=== PATIENT | female | born 1940 | race Caucasian/White ===

== ENCOUNTER 2024-10-31 18:20 | Emergency (ER) | payer OTHER, SELFPAY ==
--- OUTSIDE RECORDS SUMMARY | 2024-10-31 18:22 | XMS_ITS | Clinical Summary ---
Author Organization [facility] Address [address] [place] [address] Care Team Providers Care Color Weigher Name Role Phone Estrella Xiao MD Primary Care Provider [phone] Allergies No known active allergies Medications Medication Sig Dispensed Refills Start Date End Date Status Ascorbic Acid (VITAMIN C) 500 MG tablet Take 500 mg by mouth daily. Active acetaminophen (TYLENOL) 500 MG tablet Take 500 mg by mouth every 6 hours as needed. Active lisinopril (PRINIVIL;ZESTRIL) 10 MG tablet Take 1 tablet by mouth daily. 90 tablet 3 06/27/2014 Active simvastatin (ZOCOR) 40 MG tablet Take 1 tablet by mouth daily. 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 Immunizations Name Administration Dates Next Due Pneumococcal, PPSV23, PNEUMO VAX 23, (age 2y+), SC/IM, 0.5mL 12/02/2009 Family History Medical History Relation Name Comments Hypertension Father Colon Cancer Mother Relation Name Status Comments Father Mother Social History Tobacco Use Types Packs/Day Years Used Date Smoking Tobacco: Former Tobacco Cessation:Counseling Given: Yes Alcohol Use Standard Drinks/Week Comments Yes 0 (1 standard drink = 0.6 oz pure alcohol) moderate alcohol use, 1 drink a day Sex and Gender Information Value Date Recorded Sex Assigned at Not on file Gender Identity Not on file Sexual Orientation Not on file Last Filed Vital Signs Vital Sign Reading Time Taken Comments Blood Pressure 136/82 06/27/2014 2:29 PM EDT Pulse 77 06/27/2014 2:29 PM EDT Temperature 36.3 C (97.4 F) 04/13/2013 9:46 AM EDT Respiratory Rate - - Oxygen Saturation 97% 06/27/2014 2:29 PM EDT Inhaled Oxygen Concentration - - Weight 64 kg (141 lb 3.2 oz) 06/27/2014 2:29 PM EDT Height 161.3 cm (5' 3.5) 04/13/2013 9:46 AM EDT Body Mass Index 24.62 04/13/2013 9:46 AM EDT Plan of Treatment Not on file Care Teams Color Weigher Relationship Specialty Start Date End Date Estrella Xiao MD [address] [place] [address] PCP - General 06/09/10
[2024-10-31 18:43] VITALS: BP 216/107; PULSE 73; RESP 18; TEMP 36.3; O2SAT 98; BMI 21.3
[2024-10-31 19:27] VITALS: O2SAT 100
--- NOTE | 2024-10-31 19:29 | ED.GENADULT ---
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 She reports onset at 10:00 a.m. this morning of some left-sided abdominal pain left upper abdominal pain and then now it has been more just diffuse periumbilical abdominal pain. The patient's pain was in the left upper quadrant has resolved. She has been able eat and drink but has not much appetite today no fevers, no rigors chills. Patient denies dysuria frequency diarrhea. The patient has had no rigors, no personal history of coronary disease by her report. Related Data Allergies Allergy/AdvReac Type Severity Reaction Status Date / Time levofloxacin (From Levaquin) Allergy Intermediate Abdominal Verified 10/31/24 18:51 Pain Review of Systems Status of ROS: Reports: 6 or more systems reviewed and unremarkable except as noted in History and below Exam Narrative: Exam Narrative: Objective: Patient's blood pressure is elevated 216/107 she is mildly anxious she is afebrile O2 sats 90% on room air HEENT is unremarkable no facial asymmetry mouth clear neck is supple chest is clear Heart rhythm without murmur No palpable chest wall pain, there is on abdominal exam some mild diffuse periumbilical tenderness but no rebound no peritonitis no prominent aortic pulsations no palpable masses. Extremities are no edema Neurologic nonfocal Good peripheral perfusion noted. Const: Vital Signs, click to edit/add: Vital Signs - 24 hr 10/31/24 18:43 10/31/24 19:27 10/31/24 20:22 Temperature 97.4 F L 98.7 F Pulse Rate [Pulse Oximeter] 73 82 Respiratory Rate 18 18 Blood Pressure [Ri ght Upper Arm] 216/107 H 190/122 H Pulse Oximetry 98 100 100 Oxygen Delivery Me thod Room Air Room Air Course Vital Signs Vital signs: Initial Vital Signs Temperature 97.4 F L 10/31/24 18:43 Temperature Source Temporal Artery Scan 10/31/24 18:43 Pulse Rate 73 10/31/24 18:43 Respiratory Rate 18 10/31/24 18:43 Blood Pressure 216/107 H 10/31/24 18:43 Blood Pressure Mean 143 H 10/31/24 18:43 Pulse Oximetry 98 10/31/24 18:43 Oxygen Delivery Method Room Air 10/31/24 18:43 Vital Signs Temperature 97.4 F L 10/31/24 18:43 Pulse Rate 73 10/31/24 18:43 Respiratory Rate 18 10/31/24 18:43 Blood Pressure 216/107 H 10/31/24 18:43 Pulse Oximetry 98 10/31/24 18:43 Oxygen Delivery Method Room Air 10/31/24 18:43 Temperature 98.7 F 10/31/24 20:22 Pulse Rate 82 10/31/24 20:22 Respiratory Rate 18 10/31/24 20:22 Blood Pressure 190/122 H 10/31/24 20:22 Pulse Oximetry 100 10/31/24 20:22 Oxygen Delivery Method Room Air 10/31/24 20:22 Medications Administered Medications: Discontinued Medications Generic Name Dose Route Start Last Admin Trade Name Freq PRN Reason Stop Dose Admin Sodium Chloride 500 mls @ 500 mls/hr 10/31/24 19:27 10/31/24 21:01 0.9 % Sodium Chloride 500 Ml IV 10/31/24 20:26 Infused .Q1H ONE Infusion Metoprolol Tartrate 25 mg 10/31/24 20:40 10/31/24 20:48 Metoprolol Tartrate 25 Mg Tablet PO 10/31/24 20:41 25 mg ONCE ONE Administration Morphine Sulfate 2 mg 10/31/24 19:27 10/31/24 20:03 Morphine 4 Mg/Ml Inj IVP 10/31/24 19:28 2 mg ONCE ONE Administration Medical Decision Making [facility] Narrative Medical decision making narrative: [age] white female with history of metastatic lung cancer to left adrenal by her history. Patient reports left-sided abdominal pain today. I think a CT scan be appropriate her abdomen think will do this because of her age without contrast to start. Will get lab studies IV fluid, IV morphine. Will see the can help her blood pressure and pain. Differential be broad including intra-abdominal pathology, abdominal wall strain. She does not seem to have chest pain but I think will get an EKG and a troponin for completeness. Disposition pending findings above. Addendum 8:15 p.m. patient is CRP is slightly elevated 3.8 CBC shows a normal white count normal hemoglobin, sodium is low 126 potassium normal BUN creatinine normal troponin is negative at 0.01. Patient's EKG shows sinus rhythm with PACs no acute ST T wave changes by my read. Patient has a cystic lesion in the pancreas noted on CT. Also has lot of stool present. I suspect she has more symptoms from constipation. Recommend MiraLax for home and follow up with regular doctor for further imaging of her pancreas. Will recheck her blood pressure. 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 I think if we help her with constipation now be very helpful will give her a dose of metoprolol as well as her diastolic pressure is up and down a little bit give her 25 she has a history of hypertension but does not take ending for now. I would recommend she recheck her blood pressure daily over the next couple of days, use the MiraLax 2 capsules a day and till she gets results and Dr. Fang doctor the next 48 hours for reassessment certainly sooner return to ED problems or concerns or issues. Lab Data Labs: Lab Results 10/31/24 10/31/24 Range/Units 19:28 19:38 WBC 6.31 (4.50-11.00) K/uL RBC 4.42 (4.00-5.20) m/uL Hgb 13.5 (12.0-16.0) gm/dL Hct 40.7 (33.0-51.0) % MCV 92 (80-100) fL MCH 31 (26-34) pg MCHC 33 (32-36) gm/dL RDW Coeff of Carmen 15.7 H (11.5-15.5) % Plt Count 213 (140-440) K/uL Neut % (Auto) 77.9 H (42.0-72.0) % Lymph % (Auto) 10.5 L (20-44) % Lucas % (Auto) 7.0 (0.0-11.0) % Eos % (Auto) 3.8 (0.0-7.0) % Baso % (Auto) 0.6 (0.0-3.0) % Neut # (Auto) 4.90 (1.7-7.0) K/uL Lymph # (Auto) 0.70 L (0.90-2.90) K/uL Lucas # (Auto) 0.40 (0.00-0.90) K/UL Eos # (Auto) 0.24 (0.00-0.50) K/uL Baso # (Auto) 0.04 (0.00-0.30) K/uL Abs Immat Gran (auto) 0.01 (0.00-0.30) K/uL Imm/Tot Granulo (auto) 0.2 % Sodium 126 L (135-149) mmol/L Potassium 4.4 (3.6-5.1) mmol/L Chloride 97 (96-114) mmol/L Carbon Dioxide 23 (20-32) mmol/L Anion Gap 6 L (7-15) mEq/L BUN 13 (7-30) mg/dL Creatinine 0.8 (0.5-1.5) mg/dL Estimated Creat Clear 34.64 Estimated GFR 73 ml/min Glucose 96 (60-115) mg/dL Calcium 8.9 (8.4-10.6) mg/dL Total Bilirubin 0.9 (0.1-1.5) mg/dL Direct Bilirubin 0.2 (0.0-0.5) mg/dL AST 17 (12-35) U/L ALT 10 (4-35) U/L Alkaline Phosphatase 47 (40-150) U/L C-Reactive Protein 3.8 H (0.5-1.0) mg/dL Total Protein 5.6 L (6.0-8.3) g/dL Albumin 3.2 L (3.3-5.0) g/dL Amylase 76 (18-89) U/L SARS-CoV-2 (PCR) Negative SARS-CoV-2 (Negative) Influenza Type A (PCR) Negative PCR FLU A (Negative) Influenza Type B (PCR) Negative PCR FLU B (Negative) RSV (PCR) Negative PCR RSV (Negative) POC Troponin I 0.01 (0.01-0.04) ng/ml Discharge Plan Discharge Clinical Impression: Abdominal pain, Constipation Patient Disposition: Home w/ Parent or Adult Condition: Stable Additional Instructions: Light activity, fluids, MiraLax 1 capful in water twice a day for the next several days. Recommend follow-up with your regular doctor to discuss your findings on CT which include a cystic process in your pancreas. Return if problems or concerns. Activity Level: Light activity Discharge Diet: High Fiber Stand Alone Forms: [employer] Info Instructions
--- OUTSIDE RECORDS SUMMARY | 2024-10-31 19:46 | XMS_ITS | Clinical Summary ---
Author Organization [facility] Address [address] [place] [address]. [place] [address] Care Team Providers Care Foil Spinner Name Role Phone Melanie Louise Dami WOOD TANK BUILDER Primary Care Provider [phone] Allergies Active Allergy Reactions Criticality Noted Date Comments Levofloxacin Swelling 09/28/2022 Swelling ankles Simvastatin Muscle Pain (Myalgia) 10/01/2021 Medications losartan (COZAAR) 50 MG tablet Take 50 mg by mouth daily Active amLODIPine (NORVASC) 2.5 MG tablet Take 2.5 mg by mouth daily Active multivitamin w/minerals (THERA-VIT-M) tablet Take 1 tablet by mouth daily Active triamcinolone (KENALOG) 0.1 % external cream 2 Active senna-docusate (SENOKOT-S/PER ICOLACE) 8.6-50 MG tabletIndicati ons:S/P total knee arthroplasty, left Take 1-2 tablets by mouth 2 times daily Take while on oral narcotics to prevent or treat constipation. 30 tablet 3 Active polyethylene glycol (MIRALAX) 17 g packetIndicati ons:S/P total knee arthroplasty, left Take 17 g by mouth daily 10 packet 3 Active acetaminophen (TYLENOL) 325 MG tabletIndicati ons:S/P total knee arthroplasty, left Take 2 tablets (650 mg) by mouth every 4 hours as needed for other (mild pain) May use regular strength (325mg) acetaminophen over the counter medication when Rx runs out. 100 tablet 3 Active oxyCODONE (ROXICODONE) 5 MG tabletIndicati ons:S/P total knee arthroplasty, left Take 1-2 tablets (5-10 mg) by mouth every 4 hours as needed for moderate to severe pain or severe pain (7-10) Begin weaning on POD3 30 tablet 3 Active hydrOXYzine (ATARAX) 10 MG tabletIndicati ons:S/P total knee arthroplasty, left Take 1 tablet (10 mg) by mouth every 6 hours as needed for itching or anxiety (with pain, moderate pain) 30 tablet 3 Active aspirin (ASA) 325 MG EC tabletIndicati ons:S/P total knee arthroplasty, left Take 1 tablet (325 mg) by mouth daily 30 tablet 3 Active acetaminophen (TYLENOL) 500 MG tablet Take 1,500 mg by mouth daily Active Social History Tobacco Use Types Packs/Day Years Used Date Smoking Tobacco: Never Smokeless Tobacco: Never Tobacco Cessation:Counseling Given: Not Answered Alcohol Use Standard Drinks/Week Comments Yes 0 (1 standard drink = 0.6 oz pur e alcohol) occasional beer Adolescent Education Answer Date Record ed Getting School Help Needed Not on file 06/27 Comments No Sex and Gender Information Value Date Recorded Sex Assigned at Not on file Legal Sex Female 3:13 AM CARBIDE OPERATOR Gender Identity Not on file Sexual Orientation Not on file Last Filed Vital Signs Vital Sign Reading Time Taken Comments Blood Pressure 132/72 10/27/2022 7:54 AM CARBIDE OPERATOR Pulse 82 10/27/2022 4:31 AM CARBIDE OPERATOR Temperature 37 C (98.6 F) 10/27/2022 4:31 AM CARBIDE OPERATOR Respiratory Rate 19 10/27/2022 7:54 AM CARBIDE OPERATOR Oxygen Saturation 94% 10/27/2022 7:54 AM CARBIDE OPERATOR Inhaled Oxygen Concentration - - Weight 59 kg (130 lb) 10/26/2022 6:37 AM CARBIDE OPERATOR Height 162.6 cm (5' 4) 10/26/2022 6:37 AM CARBIDE OPERATOR Body Mass Index 22.31 10/26/2022 6:37 AM CARBIDE OPERATOR Plan of Treatment Health Maintenance Due Date Last Done Comments ADVANCE CARE PLANNING 1940 ANNUAL REVIEW OF HM ORDERS 1940 DEXA 1940 FALL RISK ASSESSMENT 02/17/2005 DTAP/TDAP/TD IMMUNIZATION (1 - Tdap) 12/08/2014 12/07/2014, 09/20/2002 RSV VACCINE (1 - 1-dose 75+ series) 02/17/2015 ZOSTER IMMUNIZATION (2 of 3) 09/16/2015 07/22/2015 MEDICARE ANNUAL WELLNESS VISIT 09/30/2022 09/30/2021, 09/24/2020 COVID-19 Vaccine (3 - 2023-2 5 season) 2024 01/15/2021, 12/25/2020 INFLUENZA VACCINE (#1) 2024 PHQ-2 (once per calendar year) 2024 Pneumococcal Vaccine: 50+ Years Completed 08/24/2018, 07/08/2015 HPV IMMUNIZATION Aged Out No longer e ligible based on patient's age to complete this topic MENINGITIS IMMUNIZATION Aged Out No l onger eligible based on patient's age to complete this topic Goals Goal Patient Goal Type Associated Problems Recent Progress Patient-Stated? Author Total Joint Replacement Hip Pathway Care Plan Total Joint Replacement Hip Pathway No Giacomo Thomas, RN Medical Devices Implanted Type Area Precipitate Washer Device Identifier Shelf Expiration Date Model / Serial / Lot Bone Cement Simplex Full Dose 6191-1-001 - [id number] Implanted:Qty: 1 on 10/26/2022 by Brendan Kay MD at [facility] Cement, Bone Left: Knee [employer] 02/17/2025 6191-1-001 / / [id number] Imp Tibial Zim Psn Forest Examiner Stm 5deg Sz El [id number] - [id number] Implanted:Qty: 1 on 10/26/2022 by Brendan Kay MD at [facility] Total Joint Component /Insert Left: Knee [employer] 05/11/2032 42-5320-07 1- / / [id number] Patella Zim Knee All Jenny 32mm [id number] - [id number] Implanted:Qty: 1 on 10/26/2022 by Brendan Kay MD at [facility] Total Joint Component /Insert Left: Knee [employer] 07/23/2027 42-5400-00 0-32 / / [id number] Cemented Femur Ps Left Size 6 Implanted:Qty: 1 on 10/26/2022 by Brendan Kay MD at [facility] Left: Knee 03/24/2032 [id number] 0 [id number] Persona, Articular Surface, Fixed Bearing, Ps, Left, 10mm Height Implanted:Qty: 1 on 10/26/2022 by Brendan Kay MD at [facility] Left: Knee [employer] 06/22/2029 [id number] 7- [id number] Additional Health Concerns Active Problems Noted Date Diagnosed Date Total Joint Replacement Hip Pathway 10/19/2022 Insurance [email or web address] Advance Directives For more information, please contact: [phone] * Full Code (Latest Code Status on File) Date Activated Date Inactivated Comments 10/26/2022 2:34 PM 10/27/2022 5:37 PM All basic and advanced life-sustaining interventions are performed as appropriate Question Answer Comments Code status determined by: Unable to dis cuss and no AD/POLST on file; continue PREVIOUSLY ORDERED code status Care Teams Foil Spinner Relationship Specialty [place] [address] [place] [address] PCP - General Family Medicine 10/26/22
--- OUTSIDE RECORDS SUMMARY | 2024-10-31 19:46 | XMS_ITS | Clinical Summary ---
Author Organization [facility] Address [address] [place] [address] Care Team Providers Care Turret Lathe Tender Name Role Phone Estrella Xiao MD Primary Care Provider [phone] Allergies No known active allergies Medications Medication [...] of Treatment Not on file Care Teams Turret Lathe Tender Relationship Specialty Start Date End Date Estrella Xiao MD [address] [place] [address] PCP - General 06/09/10
--- OUTSIDE RECORDS SUMMARY | 2024-10-31 19:46 | XMS_ITS | Clinical Summary ---
Author Organization [id number] Address [place], [place] [address] Care Team Providers Care Fiscal Analyst Name Role Phone Melanie Louise RADIOLOGY NURSE Primary Care Provider [phone] Alem Salvador RN, BSN, OCN Unavailable [phone] Sandra Rodriguez MD Unavailable [phone] Gael Sylvester MD Unavailable + [facility] Unavailable [phone] Janie Oneill RN Unavailable [phone] Allergies Active Allergy Reactions Criticality Noted Date Comments Levofloxacin Arthralgia Medium 07/29/2016 It attacked my legs. I could hardly walk. Simvastatin Myalgia Unknown 10/01/2021 Medications acetaminophen (TylenoL) 325 mg cap Take 500 mg by mouth 3 times daily if needed. Active albuterol HFA (PRO-AIR; VENTOLIN; PROVENTIL) 90 mcg/actuation inhalerIndicatio ns:Pulmonary emphysema, unspecified emphysema type (HC) Inhale 2 Puffs by mouth 4 times daily if needed for Shortness Of Breath or Wheezing. 18 g 2 4 Active diclofenac topical (VOLTAREN) 1 % gelIndications:L eft wrist pain Apply 2 g topically to affected area(s) 4 times daily if needed (wrist). 4 Active prednisoLONE acetate 1% ophthalmic (Pred Forte) suspensionIndica tions:Nuclear sclerotic cataract of both eyes Start drops in affected eye after surgery Left eye 07/06/24 and Right eye 07/20/24. One drop four times a day for three weeks. 5 mL 2 4 Active brimonidine 0.2 % ophthalmic solutionIndicati ons:Status post cataract surgery, right Place 1 Drop into right eye three times daily. 5 mL 4 Active capmatinib (TABRECTA) 200 mg tabletIndication s:Malignant neoplasm of lower lobe of right lung (HC) Take 2 Tablets (400 mg) by mouth two times daily. Swallow tablet whole, do not break, crush, or chew. 112 Tablet 2 4 11/07/19 25 Active furosemide (Lasix) 20 mg tabletIndication s:Swelling Take 1 Tablet (20 mg) by mouth once daily if needed (swelling related to oral treatment for lung cancer). 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 Swallow tablet whole, do not break, crush, or chew. Receiving from PAP; current erx has 7 refills remaining as of 10/24/24. Active Active Problems Problem Noted Date Diagnosed Date Sinus tachycardia 01/19/2024 Hyponatremia 01/16/2024 Left wrist pain 01/16/2024 COPD (chronic obstructive pulmonary disease) Malignant neoplasm of lower lobe of right lung 0 11/09/2023 Non-small cell cancer of right lung 11/02/2023 Cancer Staging:Clinical:Stage IIB(cT2a, cN1, cM0) - Signed by Sandra Rodriguez MD on 11/02/2023 Lung mass 10/25/2023 PMR (polymyalgia rheumatica) 09/28/2021 Cervical facet syndrome 12/07/2020 Overview (12/07/2020): 11/14/2020: [place] epidural steroid injection at C7-T1 level, 90% lidocaine benefit, but no lasting benefit. 12/05/2020: Right C5 TF CATHERINE at [facility]. Prediabetes 09/23/2020 Pancreatic cyst 06/25/2017 Overview (10/27/2017): Has not increased in size. No further monitoring required 10/26/17 Essential hypertension 07/08/2015 Overview (02/03/2022): Losartan. November 2020: added amlodipine 5mg. 02/08 Stopped Amlodipine due to some low blood pressures. Hyperlipidemia 07/08/2015 Chronic cough 07/08/2015 Gastroesophageal reflux disease without esophagi tis 07/08/2015 Resolved Problems Problem Noted Date Diagnosed Date Resolved Date Primary cancer of left breast 10/29/2017 09/29/2022 Overview (10/29/2017): In 2001. Lymph nodes negative. Had radiation but no chemo. Encounters Date Type Department Care Team Description 10/30/2024 11:00 AM HEATING TECHNICIAN Ancillary Procedure [facility] [address] [place] [phone] Arrived 10/30/2024 Travel 10/24/2024 11:40 AM HEATING TECHNICIAN Office Visit [facility] [address] [place], [place] [id number] Byron Souza, OD Eye Problem (Rx Ck following IOL) 10/24/2024 Telephone [facility] [place] [address] [place] [address] Gael Sylvester MD bill question 10/24/2024 Travel 10/05/2024 12:00 PM HEATING TECHNICIAN Office Visit [address] [place] [phone] Nico Zavaleta PA Follow Up 10/05/2024 11:30 AM HEATING TECHNICIAN - 10/05/2024 11:59 PM HEATING TECHNICIAN Hospital Encounter [facility] [address] [place] [address] Malignant neoplasm of lower lobe of right lung (HC) (Primary Dx) 10/05/2024 Travel 09/07/2024 Telephone [facility] [address] [place] [phone] Sandra Rodriguez MD [facility] Results 09/04/2024 2:30 PM HEATING TECHNICIAN Office Visit [facility] [address] [place] [phone] Sandra Rodriguez MD Follow Up 09/04/2024 2:00 PM HEATING TECHNICIAN - 09/04/2024 11:59 PM HEATING TECHNICIAN Hospital Encounter [facility] [address] [place] [address] Malignant neoplasm of lower lobe of right lung (HC) (Primary Dx) 09/04/2024 Telephone [facility] [address] [place] [phone] Sandra Rodriguez MD Appointment 09/04/2024 Travel 08/15/2024 Telephone [facility] [address] [place] [phone] [facility] Financial Questions/Services (Re-enrollment [employer] approval) 08/14/2024 11:00 AM HEATING TECHNICIAN Office Visit [facility] [address] [place] [phone] Sandra Rodriguez MD Follow Up 08/14/2024 10:05 AM HEATING TECHNICIAN - 08/14/2024 11:59 PM HEATING TECHNICIAN Hospital Encounter [facility] [address] [place] [address] Malignant neoplasm of lower lobe of right lung (HC) (Primary Dx) 08/14/2024 Telephone [facility] [address] [place] [phone] Sandra Rodriguez MD Appointment 08/14/2024 Travel 08/11/2024 10:20 AM HEATING TECHNICIAN Office Visit [facility] [address] [place] [address] Byron Souza, OD Post-op (3 Week POV IOL OU) 08/10/2024 9:30 AM HEATING TECHNICIAN Ancillary Procedure [facility] [address] [place] [phone] 08/10/2024 Telephone [facility] [address] [place] [address] Sandra Rodriguez MD Care Coordination (CT Scan) 08/10/2024 Travel 08/03/2024 Telephone [facility] [address] [place] [address] Sandra Rodriguez MD Results (Labs) 08/02/2024 Patient Outreach [facility] [address] [place] [address] Janie Oneill RN Focused Care Management (Unenrollment from [facility] ) 08/01/2024 8:30 AM HEATING TECHNICIAN Orders Only [facility] [address] [place] [address] Lab, [facility] 08/01/2024 Travel from Last 3 Months Immunizations Name Administration Dates Next Due COVID-19 vaccine (Startup Freak 30mcg/0.3mL) P F, MDV 01/15/2021,12/25/2020 Pneumococcal Poly,23-Valent (Pneumovax) 08/24/20 18 Pneumococcal conj 13-Valent (Prevnar 13) 015 Td (Age >=7 Years) 12/07/2014,09/20/2002 Zoster (Zostavax-ZVL, live) 07/22/2015 Family History Medical History Relation Name Comments Lymphoma Brother Cancer-breast Daughter Good Health Father Cancer-breast Maternal Grandmother Cancer-colon Mother Good Health Son Cancer-ovarian No Family History Relation Name Status Comments Brother Daughter Father Maternal Grandmother Mother Son Social History Tobacco Use Types Packs/Day Years Used Date Smoking Tobacco: Former Cigarettes 1 25 1 955 - 1979 Smokeless Tobacco: Never Tobacco Cessation:Counseling Given: Not Answered Comments:quit in 1979 Alcohol Use Standard Drinks/Week Comments Yes 7 (1 standard drink = 0.6 oz pur e alcohol) Beer and wine social/minimal PHQ-2 Answer Date Recorded PHQ-2 TOTAL SCORE 1 02/01/2024 Social Connections Answer Date Recorded Do you often feel lonely or isolated from those around you? 0 01/16/2024 Financial Resource Strain Answer Date R ecorded Difficulty of Paying Living Expenses 2 02/21/2024 Difficulty of Paying Living Expenses Not on file 02/21/2024 Food Insecurity Answer Date Recorded Do you worry your food will run out before you are able to buy more? 1 01/16/2024 Transportation Needs Answer Date Record ed Does lack of transportation keep you from medica l appointments? 1 01/16/2024 Does lack of transportation keep you from work, meetings or getting things that you need? 1 01/16/2024 Housing Stability Answer Date Recorded What is your housing situation today? 1 01/16/2024 Interpersonal Safety Answer Date Record ed Are you being hit, kicked, p ushed or yelled at (see row info)? No 05/03/2024 Interpersonal Safety Abuse 12 - 18 Not on file 05/03/2024 Interpersonal Safety Ambulatory Vulnerability No t on file 05/03/2024 Utilities Answer Date Recorded Do you have trouble paying f or utilities (for example, heat, electricity, water, phone)? 1 01/16/2024 Comments No Sex and Gender Information Value Date Recorded Sex Assigned at Not on file Legal Sex Female 8:06 AM CDT Gender Identity Not on file Sexual Orientation Not on file Obstetrics History Last Filed Vital Signs Vital Sign Reading Time Taken Comments Blood Pressure 132/80 10/05/2024 12:16 PM HEATING TECHNICIAN Pulse 99 10/05/2024 12:16 PM HEATING TECHNICIAN Temperature 36.2 C (97.2 F) 07/20/2024 9:34 AM CDT Respiratory Rate 14 10/05/2024 12:1 6 PM HEATING TECHNICIAN Oxygen Saturation 97% 10/05/2024 12: 16 PM HEATING TECHNICIAN Inhaled Oxygen Concentration - - Weight 57.1 kg (125 lb 14.4 oz) 09/04/2024 2:32 PM HEATING TECHNICIAN Height 158.5 cm (5' 2.4) 09/04/2024 2:32 PM HEATING TECHNICIAN Body Mass Index 22.73 09/04/2024 2:32 PM HEATING TECHNICIAN Plan of Treatment Upcoming Encounters Date Type Department Care Team (Late st Contact Info) Description 11/06/2024 11:30 AM HEATING TECHNICIAN Appointment [facility] [address] [place] [address] 11/06/2024 12:00 PM HEATING TECHNICIAN Office Visit [facility] [address] [place] [address] Nico Zavaleta PA [address] [place], [place] [phone] Health Maintenance Due Date Last Done Comments RSV vaccine for adults or (1 - 1-dose 75+ series) 02/17/2015 Zoster (shingles) series for age 50+ (1 of 2) 09/16/2015 07/22/2015 COVID-19 vaccine series (3 - Pfizer risk series) 02/12/2021 01/15/2021, 12/25/2020 Influenza for age 65+ 05/21/2024 Tetanus booster 12/07/2024 12/07/2014, 09/20/2002 Medicare Wellness for age 65+ 02/01/2025, 12/30/2022, 09/30/2021, Additional history exists Depression screening for age 12+ 02/03/2025 02/04/2024, 02/01/2024, 12/30/2022, Additional history exists BMI (ht and wt on same day) for age 18+ 09/04/2025 09/04/2024, 08/14/2024, 07/18/2024, Additional history exists Pneumococcal series for age 50+ Completed 8, 07/08/2015 DEXA/DXA scan for age 65+ Completed 04/20/2019 Tdap Discontinued Medical Devices Implanted Type Area Spring Intern Device Identifier Shelf Expiration Date Model / Serial / Lot Iol [place] Preload 1 Pc Clear 6mm 24.50 Diopter [employer] - [id number] Implanted:Qty : 1 on 07/06/2024 by Javy Govea MD at [facility] [place] Opthalmology Implants Left: Eye [employer] 04/20/2027 [id number] / [id number] / NA Iol [place] Preload 1 Pc Clear 6mm 25.00 Diopter [employer]nis - [id number] Implanted:Qty : 1 on 07/20/2024 by Javy Govea MD at [facility] [place] Right: Eye [employer] 07/30/2026 [id number] / [id number] / NA Procedures Procedure Name Priority Date/Time Associated Diagnosis Comments CT CHEST ABDOMEN PELVIS W Routine 10/30/2024 11:10 AM HEATING TECHNICIAN Malignant neoplasm of lower lobe of right lung (HC) COMP METABOLIC PANEL STAT 10/05/2024 12:16 PM HEATING TECHNICIAN Malignant neoplasm of lower lobe of right lung (HC) ONCOLOGY ABSOLUTE NEUTROPHIL COUNT STAT 10/05/2024 12:07 PM HEATING TECHNICIAN Malignant neoplasm of lower lobe of right lung (HC) COMP METABOLIC PANEL STAT 09/04/2024 2:20 PM HEATING TECHNICIAN Malignant neoplasm of lower lobe of right lung (HC) ONCOLOGY ABSOLUTE NEUTROPHIL COUNT STAT 09/04/2024 2:20 PM HEATING TECHNICIAN Malignant neoplasm of lower lobe of right lung (HC) COMP METABOLIC PANEL STAT 08/14/2024 10:40 AM HEATING TECHNICIAN Malignant neoplasm of lower lobe of right lung (HC) ONCOLOGY ABSOLUTE NEUTROPHIL COUNT STAT 08/14/2024 10:40 AM HEATING TECHNICIAN Malignant neoplasm of lower lobe of right lung (HC) CT CHEST ABDOMEN PELVIS W Routine 08/10/2024 9:50 AM HEATING TECHNICIAN Malignant neoplasm of lower lobe of right lung (HC) HEPATIC FUNCTION PANEL STAT 08/01/2024 8:27 AM HEATING TECHNICIAN Malignant neoplasm of lower lobe of right lung (HC) XR DXA BONE DENSITY 2 SITES AXIAL Routine 04/20/2019 1:45 PM CDT Menopause from Last 3 Months or Most Recently Relevant to Health Maintenance Results * CT CHEST ABDOMEN PELVIS W (10/30/2024 11:10 AM HEATING TECHNICIAN) Only the most recent of2 resultswithin the time period is included. Anatomical Region Laterality Modality Abdomen, Pelvis, AORTA, LIVER, SPLEEN, CHEST Computed Tomography 10/30/2024 11:1 0 AM HEATING TECHNICIAN Impressions 10/30/2024 4:28 PM HEATING TECHNICIAN 1. Post treatment consolidation and volume loss perihilar right lung is stable with no CT signs of recurrent disease. 2. No new disease. 3. Previously described new right lower lobe nodule has resolved. 4. Left adrenal metastasis and the diminutive PET positive right infraclavicular lymph node have decreased in size. 5. 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 Narrative 10/30/2024 4:28 PM HEATING TECHNICIAN For Patients: As a result of the Century Cures Act, medical imaging exams and procedure reports are released immediately into your electronic medical record. You may view this report before your referring provider. If you have questions, please contact your health care provider. EXAM: CT CHEST ABDOMEN PELVIS W LOCATION: [facility] DATE: 10/30/2024 INDICATION: Malignant Neoplasm Of Lower Lobe Of Right Lung (hc) COMPARISON: 08/10/24 ct, 05/03/24 ct, 04/10/2024 PET/CT TECHNIQUE: CT scan of the chest, abdomen, and pelvis was performed following injection of IV contrast. Multiplanar reformats were obtained. Dose reduction techniques were used. CONTRAST: Omnipaque 350 100 FINDINGS: LUNGS AND PLEURA: Large area of as treatment consolidation, volume loss and underlying traction bronchiectasis involving the upper half of the right lower lobe and the central perihilar parenchyma of the right upper and middle lobes consistent unchanged with no specific CT signs of recurrent disease. Previously described new right lower lobe solid nodule with groundglass halo has nearly completely resolved and several additional ill-defined groundglass density nodular opacities along the lateral margin of the above mentioned posttreatment change in the mid right lung (series 5 images 131, 142) and a small triangular focus of groundglass opacity posterior left upper lobe along the upper major fissure (image 59 of series 5) are unchanged and likely benign. Mild chronic radiation fibrosis subpleural anterior left upper lobe unchanged. Mild upper lung paraseptal emphysema and subpleural reticulation and mild distal bronchiolectasis in the mid and lower lungs unchanged. No pleural effusion. MEDIASTINUM/AXILLAE: No discrete lymphadenopathy. Diminutive right infraclavicular lymph node positive at 04/10/2024 PET/CT has decreased in short axis from 6 mm to 5 mm (image 18 of series 2). The diffuse paratracheal soft tissue within the lower and paratracheal and subcarinal mediastinal fat and peribronchial fat of the right hilum unchanged. Large esophageal hiatal hernia unchanged. Heart size within normal limits with no pericardial effusion. Normal caliber thoracic aorta and central pulmonary arteries. Port anterior right chest wall with right IJ central venous catheter tip RA/SVC junction. CORONARY ARTERY CALCIFICATION: Moderate three-vessel coronary artery calcification. HEPATOBILIARY: No liver lesions. No bile duct dilatation. No calcified gallstones. PANCREAS: Stable 2.5 mm thin-walled pancreatic body cyst. SPLEEN: Normal. ADRENAL GLANDS: Left adrenal metastasis has decreased from 2.0 x 1.9 cm to 1.8 x 1.7 cm (image 152 of series 2). KIDNEYS/BLADDER: A benign cyst in the right kidney requires no follow-up. Kidneys, ureters and bladder otherwise normal. BOWEL: Colonic diverticulosis with no diverticulitis. No bowel obstruction or inflammatory change. No free air or free fluid. LYMPH NODES: No abdominal or pelvic lymphadenopathy. VASCULATURE: Normal caliber abdominal aorta. PELVIC ORGANS: Unremarkable. MUSCULOSKELETAL: No bone lesions identified. Advanced degenerative change visualized spine. Procedure Note Garett Larsen MD - 10/30/2024 For Patients: As a result of the Cures Act, medical imagingexams and procedure reports are released immediately into your electronicmedical record. You may view this report before your referring provider.If you have questions, please contact your health care provider. EXAM: CT CHEST ABDOMEN PELVIS W LOCATION: [facility] DATE: 10/30/2024 INDICATION: Malignant Neoplasm Of Lower Lobe Of Right Lung (hc) COMPARISON: 08/10/24 ct, 05/03/24 ct, 04/10/2024 PET/CT TECHNIQUE: CT scan of the chest, abdomen, and pelvis was performedfollowing injection of IV contrast. Multiplanar reformats were obtained.Dose reduction techniques were used. CONTRAST: Omnipaque 350 100 FINDINGS: LUNGS AND PLEURA: Large area of as treatment consolidation, volume lossand underlying traction bronchiectasis involving the upper half of theright lower lobe and the central perihilar parenchyma of the right upperand middle lobes consistent unchanged with no specific CT signs ofrecurrent disease. Previously described new right lower lobe solid nodule with groundglasshalo has nearly completely resolved and several additional ill-definedgroundglass density nodular opacities along the lateral margin of theabove mentioned posttreatment change in the mid right lung (series 5images 131, 142) and a small triangular focus of groundglass opacityposterior left upper lobe along the upper major fissure (image 59 ofseries 5) are unchanged and likely benign. Mild chronic radiation fibrosis subpleural anterior left upper lobeunchanged. Mild upper lung paraseptal emphysema and subpleuralreticulation and mild distal bronchiolectasis in the mid and lower lungsunchanged. No pleural effusion. MEDIASTINUM/AXILLAE: No discrete lymphadenopathy. Diminutive rightinfraclavicular lymph node positive at 04/10/2024 PET/CT has decreased inshort axis from 6 mm to 5 mm (image 18 of series 2). The diffuseparatracheal soft tissue within the lower and paratracheal and subcarinalmediastinal fat and peribronchial fat of the right hilum unchanged. Largeesophageal hiatal hernia unchanged. Heart size within normal limits withno pericardial effusion. Normal caliber thoracic aorta and centralpulmonary arteries. Port anterior right chest wall with right IJ centralvenous catheter tip RA/SVC junction. CORONARY ARTERY CALCIFICATION: Moderate three-vessel coronary arterycalcification. HEPATOBILIARY: No liver lesions. No bile duct dilatation. No calcifiedgallstones. PANCREAS: Stable 2.5 mm thin-walled pancreatic body cyst. SPLEEN: Normal. ADRENAL GLANDS: Left adrenal metastasis has decreased from 2.0 x 1.9 cm to1.8 x 1.7 cm (image 152 of series 2). KIDNEYS/BLADDER: A benign cyst in the right kidney requires no follow- up.Kidneys, ureters and bladder otherwise normal. BOWEL: Colonic diverticulosis with no diverticulitis. No bowel obstructionor inflammatory change. No free air or free fluid. LYMPH NODES: No abdominal or pelvic lymphadenopathy. VASCULATURE: Normal caliber abdominal aorta. PELVIC ORGANS: Unremarkable. MUSCULOSKELETAL: No bone lesions identified. Advanced degenerative changevisualized spine. IMPRESSION: 1. Post treatment consolidation and volume loss perihilar right lung isstable with no CT signs of recurrent disease. 2. No new disease. 3. Previously described new right lower lobe nodule has resolved. 4. Left adrenal metastasis and the diminutive PET positive rightinfraclavicular lymph node have decreased in size. 5. Stable 25 mm thin-walled pancreatic body cyst probably represents abranch duct type intraductal papillary mucinous neoplasm. us Sandra Rodriguez MD CT Final Re sult * (ABNORMAL) COMP METABOLIC PANEL (10/05/2024 12:16 PM [facility]) Only the most recent of3 resultswithin the time period is included. SODIUM 135(L) 136 - 145 mmol/L 10/05/2024 12:39 PM [facility] POTASSIUM 4.8 3.5 - 5.1 mmol/L 10/05/2024 12:39 PM [facility] CHLORIDE 106 98 - 107 mmol/L 10/05/2024 12:39 PM [facility] CO2,TOTAL 22 22 - 29 mmol/L 10/05/2024 12:39 PM [facility] ANION GAP 7 5 - 18 10/05/2024 12:39 PM [facility] GLUCOSE 103(H) 70 - 99 mg/dL 10/05/2024 12:39 PM [facility] CALCIUM 8.9 8.8 - 10.4 mg/dL 10/05/2024 12:39 PM [facility] Comment: Reference ranges for this test were updated on 07/25/2024 to reflect our healthy population more accurately. Reference range changes are not retroactively applied to results, but previous results using the same methodology can be interpreted in the context of the new reference range. BUN 12 8 - 23 mg/dL 10/05/2024 12:39 PM [facility] CREATININE 0.81 0.50 - 0.90 mg/dL 10/05/2024 12:39 PM [facility] BUN/CREAT RATIO 15 10 - 20 5 12:39 PM [facility] eGFR 72(L) >90 mL/min/1. 73m2 10/05/2024 12:39 PM [facility] Comment:As of 2021, eG FR is calculated by the CKD-EPI creatinine equation without race adjustment. eGFR can be influenced by muscle mass, exercise, and diet. The reported eGFR is an estimation only and is only applicable if the renal function is stable. ALBUMIN 3.2(L) 4.0 - 4.9 g/dL 10/05/2024 12:39 PM [facility] PROTEIN,TOTAL 6.0 6.0 - 8.0 g/dL 10/05/2024 12:39 PM [facility] BILIRUBIN,TOTAL 0.7 0.0 - 1.2 mg/dL 10/05/2024 12:39 PM [facility] ALK PHOSPHATASE 58 35 - 104 IU/L 10/05/2024 12:39 PM [facility] ALT (SGPT) <5(L) 10 - 35 IU/L 10/05/2024 12:39 PM [facility] AST (SGOT) 19 10 - 35 IU/L 10/05/2024 12:39 PM [facility] Blood BLOOD SPECIMEN / Unknown Non-Lab Venipuncture / Unknown 10/05/2024 12:16 PM HEATING TECHNICIAN 10/05/2024 12:16 PM [facility] us Sandra Rodriguez MD CHEMISTRY Final Re sult [facility] SENDOUT [place]NAL [address] [address] [address] [place] [address] * ONCOLOGY ABSOLUTE NEUTROPHIL COUNT (10/05/2024 12:07 PM [facility]) Only the most recent of3 resultswithin the time period is included. WHITE BLOOD COUNT 5.8 4.5 - 11.0 thou/cu mm 10/05/2024 12:20 PM [facility] RED BLOOD COUNT 4.53 4.00 - 5.20 mil/cu mm 10/05/2024 12:20 PM [facility] HEMOGLOBIN 13.9 12.0 - 16.0 g/dL 10/05/2024 12:20 PM [facility] HEMATOCRIT 39.8 33.0 - 51.0 % 10/05/2024 12:20 PM [facility] MCV 88 80 - 100 fL 10/05/2024 12:20 PM [facility] MCH 30.7 26.0 - 34.0 pg 10/05/2024 12:20 PM [facility] MCHC 34.9 32.0 - 36.0 g/dL 10/05/2024 12:20 PM [facility] RDW 15.0 11.5 - 15.5 % 10/05/2024 12:20 PM [facility] PLATELET COUNT 233 140 - 440 thou/cu mm 10/05/2024 12:20 PM [facility] MPV 8.3 6.5 - 11.0 fL 10/05/2024 12:20 PM [facility] % NEUT 67.0 % 10/05/2024 12:20 PM [facility] % LYMPH 17.3 % 10/05/2024 12:20 PM [facility] % MONO 10.3 % 10/05/2024 12:20 PM [facility] % EOS 4.1 % 10/05/2024 12:20 PM [facility] % BASO 1.0 % 10/05/2024 12:20 PM [facility] ONCOLOGY ABSOLUTE NEUTROPHILS 3.9 1.7 - 7.0 thou/cu mm 10/05/2024 12:20 PM [facility] % IMMATURE GRAN (METAS,MYELOS,WI OS) 0.3 % 10/05/2024 12:20 PM [facility] ABSOLUTE LYMPHOCYTES 1.0 0.9 - 2.9 thou/cu mm 10/05/2024 12:20 PM [facility] ABSOLUTE MONOCYTES 0.6 <0.9 thou/cu mm 10/05/2024 12:20 PM [facility] ABSOLUTE EOSINOPHILS 0.2 <0.5 thou/cu mm 10/05/2024 12:20 PM HEATING TECHNICIAN [facility] ABSOLUTE BASOPHILS 0.1 <0.3 thou/cu mm 10/05/2024 12:20 PM [facility] ABSOLUTE IMMATURE GRANULOCYTES(MET ,MYELOS,PROS) 0.0 <0.3 thou/cu mm 10/05/2024 12:20 PM [facility] NRBC 0.0 % 10/05/2024 12:20 PM HEATING TECHNICIAN [facility] ABS NRBC 0.0 thou /cu mm 10/05/2024 12:20 PM [facility] Blood BLOOD SPECIMEN / Unknown Non-Lab Venipuncture / Unknown 10/05/2024 12:07 PM HEATING TECHNICIAN 10/05/2024 12:16 PM HEATING TECHNICIAN [facility] LABORATORY - 10/05/2024 12:20 PM HEATING TECHNICIAN Includes CBC and differential. us Sandra Rodriguez MD HEMATOLOGY Final Re sult [facility] SENDOUT [place]NAL ZIP [id number] [place] [address] * (ABNORMAL) HEPATIC FUNCTION PANEL (08/01/2024 8:27 AM HEATING TECHNICIAN) ALBUMIN 3.2(L) 4.0 - 4.9 g/dL 08/01/2024 3:13 PM HEATING TECHNICIAN [facility] TRAL LABORATORY PROTEIN,TOTAL 6.1 6.0 - 8.0 g/dL 08/01/2024 3:13 PM [facility] LAB[facility]ORY BILIRUBIN,TOTAL 0.5 0.0 - 1.2 mg/dL 08/01/2024 3:13 PM [facility] TR[facility] LAB[facility]ORY BILIRUBIN,DIRECT 0.2 0.0 - 0.2 mg/dL 08/01/2024 3:13 PM [facility] TRAL LABORATORY BILIRUBIN,INDIRE CT 0.3 0.2 - 0.8 mg/dL 08/01/2024 3:13 PM [facility] TR[facility] ALK PHOSPHATASE 57 35 - 104 IU/L 08/01/2024 3:13 PM [facility] TR[facility] LAB[facility]ORY ALT (SGPT) 8(L) 10 - 35 IU/L 08/01/2024 3:13 PM HEATING TECHNICIAN [facility] TR[facility] LAB[facility]ORY AST (SGOT) 19 10 - 35 IU/L 08/01/2024 3:13 PM HEATING TECHNICIAN [facility] TRAL [facility]ORY Blood BLOOD SPECIMEN / Unknown Venipuncture / Unknown 08/01/2024 8:27 AM HEATING TECHNICIAN 08/01/2024 8:27 AM HEATING TECHNICIAN us Sandra Rodriguez MD CHEMISTRY Final Re sult [facility] [address] [place] [address], * (ABNORMAL) XR DXA BONE DENSITY 2 SITES AXIAL [74742.1] (04/20/2019 1:45 PM CDT) Anatomical Region Laterality Modality Spine, HIPS, HIPL, HIPR Other Narrative 04/24/2019 1:19 PM CDT Please see scanned document for results of this study. us Caitlin Mi MD DEXA Final Resul t from Last 3 Months or Most Recently Relevant to Health Maintenance Insurance MEDICARE RR PART A HB ONLY [employer] [place] [id number] [employer] P[place] [id number] Advance Directives Documents on File Type Date Recorded Patient Rewinder Expl anation Healthcare Directive 09/28/2022 023 * Full Code (Latest Code Status on File) Date Activated Date Inactivated Comments 01/16/2024 3:34 PM 01/19/2024 6:37 PM Question Answer Comments Code Status Discussion: Reviewed Preferences Care Teams Fiscal Analyst Relationship Specialty Start Date End Date Melanie Louise RADIOLOGY NURSE [id number] [place] [address] PCP - General Nurse Practitioner 12/18/21 Alem Salvador, RN, BSN, OCN [address] [place] [address] Nurse Navigator - Oncology Registered Nurse 10/01/23 Sandra Rodriguez MD [address] [place] [address] Medical Oncologist Hematology and Oncology 11/09/23 Gael Sylvester MD [address] [place] [address] Radiation Oncologist Radiation Oncology 11/09/23 [facility] [address] [place] [address] 01/19/24 [place] [id number] [place], [place] [id number] Primary Care RN Care Management Registered Nurse 02/08/24
[2024-10-31 19:55] LABS: Basophils Absolute Auto 0.04 K/uL (0.00-0.30); Basophils Percent Auto 0.6 % (0.0-3.0); Eosinophils Absolute Auto 0.24 K/uL (0.00-0.50); Eosinophils Percent Auto 3.8 % (0.0-7.0); Hematocrit 40.7 % (33.0-51.0); Hemoglobin* 13.5 gm/dL (12.0-16.0); Immature Granulocytes Abs Auto 0.01 K/uL (0.00-0.30); Immature Granulocytes Pct Auto 0.2 %; Lymphocytes Percent Auto 10.5 % (20-44); Mean Corpuscular HGB Conc 33 gm/dL (32-36); Mean Corpuscular Hemoglobin 31 pg (26-34); Mean Corpuscular Volume 92 fL (80-100); Neutrophils Percent Auto 77.9 % (42.0-72.0); Platelet Count* 213 K/uL (140-440); RDW Coefficient of Variation % 15.7 % (11.5-15.5); Red Blood Count 4.42 m/uL (4.00-5.20); White Blood Count* 6.31 K/uL (4.50-11.00)
[2024-10-31 19:57] LABS: Troponin, Point-of-Care* 0.01 ng/ml (0.01-0.04)
[2024-10-31] MEDS: 0.9 % SODIUM CHLORIDE 500 ML 500 ML IV (20:01)
[2024-10-31 20:03] LABS: Slide Review Reflex No
[2024-10-31] MEDS: MORPHINE 4 MG/ML INJ 2 MG IVP (20:03)
[2024-10-31 20:07] LABS: Chloride* 97 mmol/L (96-114)
[2024-10-31 20:08] LABS: Potassium* 4.4 mmol/L (3.6-5.1); Sodium* 126 mmol/L (135-149)
[2024-10-31 20:09] LABS: Albumin* 3.2 g/dL (3.3-5.0)
[2024-10-31 20:10] LABS: Amylase* 76 U/L (18-89); Creatinine* 0.8 mg/dL (0.5-1.5); Est. Creatinine Clearance* 34.64; Estimated Glomerular Filt Rate 73 ml/min
[2024-10-31 20:11] LABS: Anion Gap 6 mEq/L (7-15); Blood Urea Nitrogen* 13 mg/dL (7-30); Carbon Dioxide* 23 mmol/L (20-32); Glucose* 96 mg/dL (60-115)
[2024-10-31 20:12] LABS: Alanine Aminotransferase* 10 U/L (4-35); Alkaline Phosphatase* 47 U/L (40-150); Aspartate Amino Transferase* 17 U/L (12-35); Bilirubin Direct* 0.2 mg/dL (0.0-0.5); Bilirubin Total* 0.9 mg/dL (0.1-1.5); Calcium* 8.9 mg/dL (8.4-10.6); Total Protein* 5.6 g/dL (6.0-8.3)
[2024-10-31 20:14] LABS: C Reactive Protein* 3.8 mg/dL (0.5-1.0)
[2024-10-31 20:22] VITALS: BP 190/122; PULSE 82; RESP 18; TEMP 37.1; O2SAT 100
[2024-10-31 20:37] LABS: PCR FLU A Negative PCR FLU A (Negative); PCR FLU B Negative PCR FLU B (Negative); PCR RSV Negative PCR RSV (Negative); SARS PCR* Negative SARS-CoV-2 (Negative)
[2024-10-31] MEDS: METOPROLOL TARTRATE 25 MG TABLET PO (20:48)
== END 2024-10-31 21:02 | disposition home or self-care (01) ==
PROVIDERS: Emergency Provider Family Medicine; PCP Nurse Practitioner Family
DX: R10.12 Left upper quadrant pain (principal); K59.00 Constipation, unspecified
CPT/HCPCS: 36415; 74176; 80048; 80076; 82150; 84484; 85025; 86140; 87631; 93005; 94761; 96374; 99285; A9270; J2270; J7030